=== PATIENT | male | born 1975 | race Caucasian/White ===

== ENCOUNTER 2017-11-08 12:36 | Emergency (ER) | payer SELFPAY ==
[2017-11-08] MEDS: KETOROLAC 60 MG INJ IM (15:22)
== END 2017-11-08 17:30 | disposition home or self-care (01) ==
LOC: FTE 12:36
DX: S80.01XA Contusion of right knee, initial encounter (principal); S83.91XA Sprain of unspecified site of right knee, initial encounter; W01.0XXA Fall on same level from slipping, tripping and stumbling without subsequent striking against object, initial encounter; Y92.9 Unspecified place or not applicable
CPT/HCPCS: 73562; 96372; 99284-25